=== PATIENT | female | born 1985 | race Caucasian/White ===

== ENCOUNTER → 2017-01-02 | Outpatient (CLI) | payer OTHER ==
[2017-01-02 13:43] LABS: BLOOD UREA NITROGEN 13 mg/dL (7-20); CREATININE RESULT 0.72 mg/dL (0.52-1.25)
== END ==
LOC: OD 12:03
PROVIDERS: ATTEND Nurse Practitioner Primary Care
DX: I10 Essential (primary) hypertension (principal)
CPT/HCPCS: 36415; 82565; 84520

== ENCOUNTER 2017-03-18 07:11 | Day surgery (SDC) | payer OTHER ==
[2017-03-13 10:53] LABS: HEMATOCRIT 40.3 % (36.0-47.0); HEMOGLOBIN 14.1 g/dL (12.0-15.5); MEAN CORPUSCULAR HEMOGLOBIN 30.6 pg (27.0-33.4); MEAN CORPUSCULAR VOLUME 87 fl (80-97); RED BLOOD COUNT 4.62 10^6/uL (3.72-5.28); RED CELL DISTRIBUTION WIDTH 13.6 % (11.5-14.0); WHITE BLOOD COUNT 7.6 10^3/uL (4.0-10.5)
[2017-03-13 10:55] LABS: APPEARANCE,URINE SLIGHTLY-CLOUDY; BILIRUBIN,URINE NEGATIVE (NEGATIVE); GLUCOSE, URINE NEGATIVE (NEGATIVE); KETONES,URINE NEGATIVE (NEGATIVE); LEUKOCYTE ESTERASE,URINE NEGATIVE (NEGATIVE); NITRITE,URINE NEGATIVE (NEGATIVE); PROTEIN,URINE NEGATIVE (NEGATIVE); UROBILINOGEN,URINE NEGATIVE mg/dL (<2.0)
[2017-03-13 11:29] LABS: ALANINE AMINOTRANSFERASE 38 U/L (9-52); ALBUMIN 5.2 g/dL (3.5-5.0); ALKALINE PHOSPHATASE 67 U/L (38-126); ANION GAP 16 (5-19); ASPARTATE AMINO TRANSFERASE 19 U/L (14-36); BILIRUBIN,DIRECT 0.4 mg/dL (0.0-0.4); BILIRUBIN,TOTAL 0.6 mg/dL (0.2-1.3); BLOOD UREA NITROGEN 11 mg/dL (7-20); CALCIUM 10.1 mg/dL (8.4-10.2); CARBON DIOXIDE 27 mmol/L (22-30); CHLORIDE 100 mmol/L (98-107); CREATININE RESULT 0.83 mg/dL (0.52-1.25); GLUCOSE 83 mg/dL (75-110); POTASSIUM 4.6 mmol/L (3.6-5.0); SODIUM 142.6 mmol/L (137-145); TOTAL PROTEIN 8.7 g/dL (6.3-8.2)
[~2017-03-18 07:11] MED LIST: BUPIVACAINE HCL 0.25 % INJ/PF (2.5 MG/1 ML) 30 ML VIAL ONE; CEFAZOLIN 1 GM/D5W RTU 1 GM/50 ML RTUPB IV PRN; LACTATED RINGERS 1000 ML IV PRN
[2017-03-18] MEDS ORDERED: SCOPOLAMINE HYDROBROMIDE 1.5 MG PATCH.TD72 ONE (08:02)
[2017-03-18] MEDS ORDERED: MIDAZOLAM 2 MG/2 ML INJ ONE (08:37)
[2017-03-18] MEDS ORDERED: FENTANYL CITRATE INJ/PF 100 MCG/2 ML AMPUL ONE (08:37)
[2017-03-18] MEDS ORDERED: DEXAMETHASONE SOD PHOSPHATE INJ 4 MG/1 ML VIAL ONE (08:37)
[2017-03-18] MEDS ORDERED: ONDANSETRON HCL INJ/PF 4 MG/2 ML SDV ONE ×2 (08:37→10:31)
[2017-03-18] MEDS ORDERED: ACETAMINOPHEN 100 ML IV ONE (08:38)
[2017-03-18] MEDS ORDERED: PROPOFOL INJ 200 MG/20 ML VIAL IV ONE (08:38)
[2017-03-18] MEDS ORDERED: MEPERIDINE HCL/PF INJ 25 MG/1 ML DISP.SYRIN IV PRN (09:23)
[2017-03-18] MEDS ORDERED: FENTANYL CITRATE INJ/PF 100 MCG/2 ML AMPUL IV PRN ×3 (09:23)
[2017-03-18] MEDS ORDERED: OXYCODONE-ACETAMINOPHEN 5-325 MG TABLET PO PRN ×4 (09:23→10:34)
[2017-03-18] MEDS ORDERED: PROMETHAZINE HCL INJ 25 MG/1 ML VIAL IV PRN ×3 (09:23→10:34)
[2017-03-18] MEDS ORDERED: DIPHENHYDRAMINE HCL 50 MG/ML VIAL IV PRN (09:23)
[2017-03-18] MEDS ORDERED: MORPHINE SULFATE 10 MG/ML INJ IV PRN (09:23)
[2017-03-18] MEDS ORDERED: KETOROLAC TROMETHAMINE INJ/PF 30 MG/1 ML SDV ONE (09:55)
[2017-03-18] MEDS ORDERED: OXYCODONE-ACETAMINOPHEN 5-325 MG TABLET ONE (10:04)
--- NOTE | 2017-03-18 10:58 | OPERATIVE REPORT E ---
Operative Report NAME: JAGDISH MEDRANO : 1985 AGE: 32Y DATE OF SURGERY: 03/18/2017 ROOM: PREOPERATIVE DIAGNOSIS: LEFT LOWER QUADRANT PAIN, STATUS TOTAL ABDOMINAL HYSTERECTOMY, RIGHT SALPINGO-OOPHORECTOMY. POSTOPERATIVE DIAGNOSIS NORMAL LEFT TUBE AND OVARY STATUS POST TOTAL ABDOMINAL HYSTERECTOMY, RIGHT SALPINGO-OOPHORECTOMY. OPERATION: Diagnostic laparoscopy. SURGEON: JUNO LOFTON M.D. ANESTHESIA: General. PERTINENT HISTORY AND OPERATIVE FINDINGS: This is a 32-year-old female who has been having increasing problems with left lower quadrant pain. Ultimately decided that she wanted us to take a look because of pain and discomfort. On examination today, as stated the pelvis was noted to have the previous hysterectomy, right salpingo-oophorectomy; otherwise negative. The liver appeared to be normal. The gallbladder appeared to be grossly normal. There did not appear to be any scar tissue. Was unable to localize the appendix. OPERATIVE PROCEDURE: The patient was brought into the OR, placed on the table in a supine position, and inducted under general anesthesia. Following this, she was prepped and draped in a sterile fashion. A catheter was inserted. Bladder was drained with a Loaiza. The Veress needle was introduced umbilically and carried through the various layers until the abdominal cavity was entered. Upon entering the abdominal cavity, approximately 3.1 L of CO2 were injected. Opening pressure was 5. Closing was 15 cm. Having removed the Veress needle, a small incision was made infraumbilically. Through this incision, a trocar and sleeve were inserted. The trocar is removed and through the sleeve, a laparoscope was inserted. A second incision was made. Suprapubically through this incision, a trocar and sleeve was inserted. The trocar is removed and through the sleeve, probe was inserted. The contents of the pelvis were then recorded as was the abdomen and the liver and gallbladder. This terminated procedure. The lower sleeve was removed. The CO2 was allowed to escape. The upper sleeve was removed. The patient had 4 mL of 0.25% Marcaine injected in the subumbilical and the suprapubic incisions. The fascia was closed with an interrupted 0 Vicryl. The skin is brought together with a subcuticular 4-0 Prolene in the umbilical area and interrupted 4-0 Prolene in the suprapubic. The Loaiza catheter was removed. Anesthesia was discontinued. Patient was transferred to recovery room in satisfactory condition. Negligible blood loss. DICTATING PHYSICIAN: JUNO LOFTON M.D. [id number] PHY#: [id number] ID: [id number] JOB#: [id number] ACCT: [id number] cc:JUNO LOFTON M.D. >
[2017-03-18 12:00] VITALS: BP 109/79
[2017-03-18] MEDS ORDERED: SUCCINYLCHOLINE CHLORIDE INJ 200 MG/10 ML VIAL ONE (13:26)
== END 2017-03-18 12:05 | disposition home or self-care (01) ==
LOC: OROUT 07:11
PROVIDERS: ATTEND Obstetrics & Gynecology
PROC: 0WJJ4ZZ Inspection of Pelvic Cavity, Percutaneous Endoscopic Approach (ICD-10-PCS; principal; 2017-03-18 09:00)
DX: N83.202 Unspecified ovarian cyst, left side (principal); R10.2 Pelvic and perineal pain; E03.9 Hypothyroidism, unspecified; Z90.710 Acquired absence of both cervix and uterus; Z88.8 Allergy status to other drugs, medicaments and biological substances
CPT/HCPCS: 36415; 85027; 80053; 81001; 49320; J2250; J0690; J1100; J3010; J1885; J0330; J2405; J2704; J0131; 790

== ENCOUNTER → 2017-03-21 | Outpatient (CLI) | payer OTHER ==
[~2017-03-21] MED LIST changes: -BUPIVACAINE HCL 0.25 % INJ/PF (2.5 MG/1 ML) 30 ML VIAL ONE; -CEFAZOLIN 1 GM/D5W RTU 1 GM/50 ML RTUPB IV PRN; +FENTANYL CITRATE INJ/PF 100 MCG/2 ML AMPUL ONE; +HYDROMORPHONE HCL INJ/PF 2 MG/ML AMPULE ONE; -LACTATED RINGERS 1000 ML IV PRN; +MIDAZOLAM 2 MG/2 ML INJ ONE; +PROPOFOL INJ 200 MG/20 ML VIAL IV ONE
--- NOTE | 2017-03-21 17:55 | RADIOLOGY REPORT (SQ) ---
EXAM DESCRIPTION: U/S ABDOMEN LIMITED W/O DOP COMPLETED DATE/TIME: 03/21/2017 5:46 pm REASON FOR STUDY: Right upper quadrant pain, cholecystitis R10.11 RIGHT UPPER QUADRANT PAIN K81.9 CHOLECYSTITIS, UNSPECIFIED COMPARISON: None. TECHNIQUE: Dynamic and static grayscale images acquired of the abdomen and recorded on PACS. Additio nal selected color Doppler and spectral images recorded. LIMITATIONS: None. FINDINGS: PANCREAS: No masses. Visualized pancreatic duct normal caliber. LIVER: 14 cm. Normal echotexture. No masses. LIVER VASCULATURE: Normal directional flow of the main portal vein and hepatic veins. GALLBLADDER: No stones. Normal wall thickness. No pericholecystic fluid. ULTRASOUND-DETECTED CHIN'S SIGN: Negative. INTRAHEPATIC DUCTS AND COMMON DUCT: CBD and intrahepatic ducts normal caliber. No filling defects. INFERIOR VENA CAVA: Normal flow. AORTA: No aneurysm. RIGHT KIDNEY: Normal size, 11.4 cm. Normal echogenicity. No solid or suspicious masses. No hydroneph rosis. No calcifications. PERITONEAL AND RIGHT PLEURAL SPACE: No ascites or effusions. OTHER: No other significant findings. IMPRESSION: NORMAL RIGHT UPPER QUADRANT ULTRASOUND. TECHNICAL DOCUMENTATION: JOB ID: [id number] [employer] All Rights Reserved
== END ==
LOC: RAD 16:45
PROVIDERS: ATTEND Nurse Practitioner Primary Care
DX: K81.9 Cholecystitis, unspecified (principal); R10.11 Right upper quadrant pain
CPT/HCPCS: 76705

== ENCOUNTER 2017-03-22 09:53 | Observation (INO) | payer OTHER ==
[~2017-03-22 09:53] MED LIST changes: +DEXAMETHASONE SOD PHOSPHATE INJ 4 MG/1 ML VIAL ONE; -FENTANYL CITRATE INJ/PF 100 MCG/2 ML AMPUL ONE; +GLYCOPYRROLATE INJ 0.4 MG/2 ML VIAL ONE; -HYDROMORPHONE HCL INJ/PF 2 MG/ML AMPULE ONE; +LIDOCAINE 2% INJ-PF (20 MG/ML) 2 ML AMPUL ONE; -MIDAZOLAM 2 MG/2 ML INJ ONE; +NEOSTIGMINE METHYLSULFATE 10 MG/10 ML VIAL ONE; +ONDANSETRON HCL INJ/PF 4 MG/2 ML SDV ONE; -PROPOFOL INJ 200 MG/20 ML VIAL IV ONE; +SUCCINYLCHOLINE CHLORIDE INJ 200 MG/10 ML VIAL ONE; +VECURONIUM BROMIDE INJ 10 MG VIAL IV ONE
[2017-03-22] MEDS ORDERED: MORPHINE SULFATE 10 MG/ML INJ IV ONE (10:07)
[2017-03-22] MEDS ORDERED: ONDANSETRON HCL INJ/PF 4 MG/2 ML SDV IV ONE (10:07)
[2017-03-22] MEDS ORDERED: NORMAL SALINE 1000 ML 1,000 ML IV ONE (10:10)
--- NOTE | 2017-03-22 10:10 | ER Document Report ---
ED Medical Screen (RME) - General Chief Complaint: Abdominal Pain Stated Complaint: ABDOMINAL PAIN Time Seen by Provider: 03/22/17 10:01 Notes: 32-year-old female past medical history chronic abdominal pain ongoing for the past few months here with complaints of right-sided abdominal pain ongoing for the past 3 days. She has also had nausea but no vomiting or diarrhea. She has worsening of the right upper quadrant abdominal pain with deep breathing but she has not had any chest pain shortness of breath or cough and has no prior history of PE. She was sent by Dr. Castro for an ultrasound yesterday (report is available through [facility]) which initially was read as normal however there was an addendum added that stated she did indeed have gallstones and a positive Ledesma sign. She also had a CT scan performed that has been faxed over this morning to this emergency department. EXAM Mild right upper quadrant tenderness to palpation Moderate epigastric tenderness to palpation No peritoneal signs TRAVEL OUTSIDE OF THE [place] IN LAST 30 DAYS: No - Related Data Allergies/Adverse Reactions: latex [Latex] Allergy (Intermediate, Verified 03/22/17 09:54) Itching & Redness diazepam [From Valium] Adverse Reaction (Verified 03/22/17 09:54) VOMITING Past Medical History - Social History Chew tobacco use (# tins/day): No Frequency of alcohol use: None Drug Abuse: None - Past Medical History Cardiac Medical History: Denies: Hx Coronary Artery Disease, Hx Heart Attack, Hx Hypertension Pulmonary Medical History: Denies: Hx Asthma, Hx Bronchitis, Hx COPD, Hx Pneumonia Neurological Medical History: Denies: Hx Cerebrovascular Accident, Hx Seizures Renal/ Medical History: Denies: Hx Peritoneal Dialysis Musculoskeltal Medical History: Denies Hx Arthritis Past Surgical History: Reports: Hx Gynecologic Surgery - NOVASURE. Denies: Hx Pacemaker - Immunizations Hx Diphtheria, Pertussis, Tetanus Vaccination: No History of Influenza Vaccine for 01/2017 - 06/2017 Season: Yes Influenza Administration Date for 01/2017 - 06/2017 Season: 12/17/16 Physical Exam - Vital signs Vitals: Temp Pulse Resp BP Pulse Ox 99.1 F 101 H 16 133/97 H 98 03/22/17 10:01 03/22/17 10:01 03/22/17 10:01 03/22/17 10:01 03/22/17 10:01 Course - Vital Signs Vital signs: Temp Pulse Resp BP Pulse Ox 99.1 F 101 H 16 133/97 H 98 03/22/17 10:01 03/22/17 10:01 03/22/17 10:01 03/22/17 10:01 03/22/17 10:01
[2017-03-22 10:33] LABS: APPEARANCE,URINE CLEAR; BILIRUBIN,URINE NEGATIVE (NEGATIVE); GLUCOSE, URINE NEGATIVE (NEGATIVE); KETONES,URINE NEGATIVE (NEGATIVE); LEUKOCYTE ESTERASE,URINE NEGATIVE (NEGATIVE); NITRITE,URINE NEGATIVE (NEGATIVE); PROTEIN,URINE NEGATIVE (NEGATIVE); URINE SPECIFIC GRAVITY 1.018; UROBILINOGEN,URINE NEGATIVE mg/dL (<2.0)
[2017-03-22 10:38] LABS: ABSOLUTE BASOPHILS # (AUTO) 0.1 10^3/uL (0.0-0.2); ABSOLUTE EOSINOPHILS # (AUTO) 0.2 10^3/uL (0.0-0.6); ABSOLUTE LYMPHOCYTES (AUTO) 2.4 10^3/uL (0.5-4.7); ABSOLUTE MONOCYTES (AUTO) 0.5 10^3/uL (0.1-1.4); ABSOLUTE NEUT (AUTO) 6.5 10^3/uL (1.7-8.2); BASOPHILS % (AUTO) 0.5 % (0-2); EOSINOPHILS % (AUTO) 1.6 % (0-6); HEMOGLOBIN 14.8 g/dL (12.0-15.5); HGB HCT DIFFERENCE 1.4; LYMPHOCYTES % (AUTO) 24.6 % (13-45); MEAN CORPUSCULAR HEMOGLOBIN 29.9 pg (27.0-33.4); MEAN CORPUSCULAR HGB CONC 34.5 g/dL (32.0-36.0); MEAN CORPUSCULAR VOLUME 87 fl (80-97); MONOCYTES % (AUTO) 5.4 % (3-13); RED BLOOD COUNT 4.97 10^6/uL (3.72-5.28); RED CELL DISTRIBUTION WIDTH 13.2 % (11.5-14.0); SEGMENTED NEUTROPHILS % (AUTO) 67.9 % (42-78); WHITE BLOOD COUNT 9.6 10^3/uL (4.0-10.5)
--- NOTE | 2017-03-22 10:58 | ER Document Report ---
ED GI/ - General Chief Complaint: Abdominal Pain Stated Complaint: ABDOMINAL PAIN Time Seen by Provider: 03/22/17 10:01 TRAVEL OUTSIDE OF THE [place] IN LAST 30 DAYS: No - HPI Notes: 03/22/17 10:55 32 years old female presents today with right upper quadrant pain and had a ultrasound yesterday was diagnosed with gallstone. Primary care physician called the surgical list and made arrangements to have a surgery done today. She also had a temperature. No nausea vomiting. No other constitutional symptoms. - Related Data Allergies/Adverse Reactions: latex [Latex] Allergy (Intermediate, Verified 03/22/17 09:54) Itching & Redness diazepam [From Valium] Adverse Reaction (Verified 03/22/17 09:54) VOMITING Past Medical History - General Information source: Patient - Social History Smoking Status: Never Smoker Chew tobacco use (# tins/day): No Frequency of alcohol use: None Drug Abuse: None Family History: Reviewed & Not Pertinent Patient has suicidal ideation: No Patient has homicidal ideation: No - Past Medical History Cardiac Medical History: Reports: Hx Hypertension Denies: Hx Coronary Artery Disease, Hx Heart Attack Pulmonary Medical History: Denies: Hx Asthma, Hx Bronchitis, Hx COPD, Hx Pneumonia Neurological Medical History: Denies: Hx Cerebrovascular Accident, Hx Seizures Renal/ Medical History: Denies: Hx Peritoneal Dialysis Musculoskeltal Medical History: Denies Hx Arthritis Past Surgical History: Reports: Hx Gynecologic Surgery - NOVASURE. Denies: Hx Pacemaker - Immunizations Hx Diphtheria, Pertussis, Tetanus Vaccination: No Review of Systems - Review of Systems Notes: REVIEW OF SYSTEMS: CONSTITUTIONAL : Denies fever, chills, or sweats. Denies recent illness. EENT: Denies eye, ear, throat, or mouth pain or symptoms. Denies nasal or sinus congestion or discharge. Denies throat, tongue, or mouth swelling or difficulty swallowing. CARDIOVASCULAR: Denies chest pain. Denies palpitations or racing or irregular heart beat. Denies ankle edema. RESPIRATORY: Denies cough, cold, or chest congestion. Denies shortness of breath, difficulty breathing, or wheezing. GASTROINTESTINAL: Denies abdominal pain or distention. Denies nausea, vomiting , or diarrhea. Denies blood in vomitus, stools, or per rectum. Denies black, tarry stools. Denies constipation. GENITOURINARY: Denies difficulty urinating, painful urination, burning, frequency, blood in urine, or discharge. FEMALE GENITOURINARY: Denies vaginal bleeding, heavy or abnormal periods, irregular periods. Denies vaginal discharge or odor. MUSCULOSKELETAL: Denies back or neck pain or stiffness. Denies joint pain or swelling. SKIN: Denies rash, lesions or sores. HEMATOLOGIC : Denies easy bruising or bleeding. LYMPHATIC: Denies swollen, enlarged glands. NEUROLOGICAL: Denies confusion or altered mental status. Denies passing out or loss of consciousness. Denies dizziness or lightheadedness. Denies headache. Denies weakness or paralysis or loss of use of either side. Denies problems with gait or speech. Denies sensory loss, numbness, or tingling. Denies seizures. PSYCHIATRIC: Denies anxiety or stress. Denies depression, suicidal ideation, or homicidal ideation. ALL OTHER SYSTEMS REVIEWED AND NEGATIVE. PHYSICAL EXAMINATION: GENERAL: Well-appearing, well-nourished and in no acute distress. HEAD: Atraumatic, normocephalic. EYES: Pupils equal round and reactive to light, extraocular movements intact, conjunctiva are normal. ENT: Nares patent, oropharynx clear without exudates. Moist mucous membranes. NECK: Normal range of motion, supple without lymphadenopathy LUNGS: Breath sounds clear to auscultation bilaterally and equal. No wheezes rales or rhonchi. HEART: Regular rate and rhythm without murmurs ABDOMEN: Soft, tender over the right upper quadrant no rebound tenderness or guarding, nondistended abdomen. No guarding, no rebound. No masses appreciated. Female : deferred Musculoskeletal: Normal range of motion, no pitting or edema. No cyanosis. NEUROLOGICAL: Cranial nerves grossly intact. Normal speech, normal gait. Normal sensory, motor exams PSYCH: Normal mood, normal affect. SKIN: Warm, Dry, normal turgor, no rashes or lesions noted. Dictation was performed using [employer] voice recognition software Physical Exam - Vital signs Vitals: Temp Pulse Resp BP Pulse Ox 99.1 F 101 H 16 133/97 H 98 03/22/17 10:01 03/22/17 10:01 03/22/17 10:01 03/22/17 10:01 03/22/17 10:01 Course - Re-evaluation Re-evalutation: 03/22/17 10:56 Her case was discussed with surgical list hvac refrigeration technician and currently being admitted to his service. - Vital Signs Vital signs: Temp Pulse Resp BP Pulse Ox 99.1 F 101 H 16 133/97 H 98 03/22/17 10:01 03/22/17 10:01 03/22/17 10:01 03/22/17 10:01 03/22/17 10:01 - Laboratory Result Diagrams: 03/22/17 10:18 03/22/17 10:18 Laboratory results interpreted by me: 03/22/17 10:18 AST 37 H Total Protein 9.1 H Albumin 5.1 H Discharge - Discharge Clinical Impression: Acute cholecystitis Gallstone Qualifiers: Cholecystitis presence: with cholecystitis Cholecystitis acuity: acute Disposition: ADMITTED INPATIENT Admitting Provider: Surgicalist Unit Admitted: Surgical Floor
[2017-03-22 11:00] LABS: ALANINE AMINOTRANSFERASE 43 U/L (9-52); ALBUMIN 5.1 g/dL (3.5-5.0); ALKALINE PHOSPHATASE 63 U/L (38-126); ANION GAP 17 (5-19); ASPARTATE AMINO TRANSFERASE 37 U/L (14-36); BILIRUBIN,DIRECT 0.4 mg/dL (0.0-0.4); BILIRUBIN,TOTAL 0.7 mg/dL (0.2-1.3); BLOOD UREA NITROGEN 12 mg/dL (7-20); CALCIUM 9.7 mg/dL (8.4-10.2); CARBON DIOXIDE 23 mmol/L (22-30); CHLORIDE 102 mmol/L (98-107); CREATININE RESULT 0.87 mg/dL (0.52-1.25); GLUCOSE 86 mg/dL (75-110); POTASSIUM 4.6 mmol/L (3.6-5.0); SODIUM 142.4 mmol/L (137-145); TOTAL PROTEIN 9.1 g/dL (6.3-8.2)
--- NOTE | 2017-03-22 11:54 | PDOC H&P ---
History of Present Illness Admission Date/PCP: JUNO LOFTON MD Patient complains of: Abdominal pains with nausea History of Present Illness: JAGDISH MEDRANO is a 32 year old female Complaining of abdominal pains and nausea for the past 3-4 days. She had a diagnostic laparoscopy 4 days ago which was essentially unremarkable. She had ultrasound of the gallbladder which showed gallstones with positive Ledesma sign. CAT scan also showed gallstones. I was called in this morning by Dr. Lofton for possible laparoscopic cholecystectomy Past Medical History Cardiac Medical History: Reports: Hypertension Denies: Coronary Artery Disease, Myocardial Infarction Pulmonary Medical History: Denies: Asthma, Bronchitis, Chronic Obstructive Pulmonary Disease (COPD), Pneumonia Neurological Medical History: Denies: Seizures Musculoskeltal Medical History: Denies: Arthritis Hematology: Denies: Anemia Past Surgical History Past Surgical History: Reports: Other - Diagnostic laparoscopy done by a ACTIVITIES MANAGER 4 days ago which was apparently unr Denies: Pacemaker Social History Smoking Status: Never Smoker Family History Family History: Reviewed & Not Pertinent Parental Family History Reviewed: Yes - Mother has psoriatic arthritis Children Family History Reviewed: No Sibling(s) Family History Reviewed.: No Medication/Allergy Home Medications: Alprazolam [Xanax] 0.5 mg PO DAILY PRN 03/13/17 Lisinopril 5 mg PO QHS 03/13/17 Allergies/Adverse Reactions: latex [Latex] Allergy (Intermediate, Verified 03/22/17 09:54) Itching & Redness diazepam [From Valium] Adverse Reaction (Verified 03/22/17 09:54) VOMITING Review of Systems Constitutional: PRESENT: other - No fever no chills Eyes: PRESENT: other - No obvious swelling or hearing problems Nose, Mouth, and Throat: PRESENT: other Cardiovascular: PRESENT: other - No chest pains no shortness of breath Gastrointestinal: PRESENT: as per HPI, abdominal pain, nausea, vomiting Musculoskeletal: PRESENT: other - No back pains Integumentary: PRESENT: other - No skin rash Neurological: PRESENT: other - No seizures Psychiatric: PRESENT: other - No hallucinations Endocrine: PRESENT: other - No polydipsia no polyuria Hematologic/Lymphatic: PRESENT: other - No easy bruisability or lymphadenopathy Physical Exam Vital Signs: Temp Pulse Resp BP Pulse Ox 99.1 F 101 H 16 133/97 H 98 03/22/17 10:01 03/22/17 10:01 03/22/17 10:01 03/22/17 10:01 03/22/17 10:01 Intake & Output 03/21/17 03/22/17 03/23/17 06:59 06:59 06:59 Weight 78.7 kg General appearance: PRESENT: no acute distress Head exam: PRESENT: atraumatic, normocephalic Eye exam: PRESENT: conjunctiva pink Ear exam: PRESENT: normal external ear exam Mouth exam: PRESENT: moist, tongue midline Throat exam: PRESENT: other - No tonsillar erythema Respiratory exam: PRESENT: clear to auscultation tejas Cardiovascular exam: PRESENT: RRR Pulses: PRESENT: normal radial pulses Vascular exam: PRESENT: normal capillary refill GI/Abdominal exam: PRESENT: soft, tenderness - Tenderness epigastric and right upper quadrant areas Extremities exam: PRESENT: full ROM Musculoskeletal exam: PRESENT: ambulatory Neurological exam: PRESENT: alert, oriented to person, oriented to place, oriented to time, oriented to situation Psychiatric exam: PRESENT: appropriate affect Skin exam: PRESENT: normal color, warm Results Laboratory Results: 03/22/17 10:18 03/22/17 10:18 03/22/17 03/22/17 03/22/17 10:15 10:18 10:18 WBC 9.6 RBC 4.97 Hgb 14.8 Hct 43.0 MCV 87 MCH 29.9 MCHC 34.5 RDW 13.2 Plt Count 424 Seg Neutrophils % 67.9 Lymphocytes % 24.6 Monocytes % 5.4 Eosinophils % 1.6 Basophils % 0.5 Absolute Neutrophils 6.5 Absolute Lymphocytes 2.4 Absolute Monocytes 0.5 Absolute Eosinophils 0.2 Absolute Basophils 0.1 Sodium 142.4 Potassium 4.6 Chloride 102 Carbon Dioxide 23 Anion Gap 17 BUN 12 Creatinine 0.87 Est GFR ( Amer) > 60 Est GFR (Non-Af Amer) > 60 Glucose 86 Calcium 9.7 Total Bilirubin 0.7 AST 37 H ALT 43 Alkaline Phosphatase 63 Total Protein 9.1 H Albumin 5.1 H Lipase 43.0 Urine Color YELLOW Urine Appearance CLEAR Urine pH 7.0 Ur Specific Harrold 1.018 Urine Protein NEGATIVE Urine Glucose (UA) NEGATIVE Urine Ketones NEGATIVE Urine Blood NEGATIVE Urine Nitrite NEGATIVE Ur Leukocyte Esterase NEGATIVE Urine WBC (Auto) 2 Urine RBC (Auto) 1 Assessment & Plan - Time Time Spent: 30 to 50 Minutes - Plan Summary Plan Summary: For lap olimpia today
[2017-03-22] MEDS ORDERED: BUPIVACAINE HCL 0.25% /EPINEPHRINE INJ/PF 30 ML SDV ONE (12:10)
[2017-03-22] MEDS ORDERED: CEFAZOLIN 2 GM/D5W RTU 2 GM/50 ML RTUPB IV ONE (12:27)
[2017-03-22] MEDS ORDERED: FENTANYL CITRATE INJ/PF 100 MCG/2 ML AMPUL ONE (12:38)
[2017-03-22] MEDS ORDERED: PROPOFOL INJ 200 MG/20 ML VIAL IV ONE (12:39)
[2017-03-22] MEDS ORDERED: HYDROMORPHONE HCL INJ/PF 2 MG/ML AMPULE ONE (12:39)
[2017-03-22] MEDS ORDERED: MIDAZOLAM 2 MG/2 ML INJ ONE (12:39)
[2017-03-22] MEDS ORDERED: FENTANYL CITRATE INJ/PF 100 MCG/2 ML AMPUL IV PRN ×3 (13:38)
[2017-03-22] MEDS ORDERED: PROMETHAZINE HCL INJ 25 MG/1 ML VIAL IV PRN (13:38)
[2017-03-22] MEDS ORDERED: MORPHINE SULFATE 10 MG/ML INJ IV PRN ×2 (13:38→15:32)
[2017-03-22] MEDS ORDERED: DIPHENHYDRAMINE HCL 50 MG/ML VIAL IV PRN (13:38)
[2017-03-22] MEDS ORDERED: MEPERIDINE HCL/PF INJ 25 MG/1 ML DISP.SYRIN IV PRN (13:38)
[2017-03-22] MEDS: FENTANYL CITRATE INJ/PF 100 MCG/2 ML AMPUL ONE ×2 (14:45→14:55)
[2017-03-22] MEDS ORDERED: KETOROLAC TROMETHAMINE INJ/PF 30 MG/1 ML SDV ONE (15:06)
[2017-03-22] MEDS: HYDROMORPHONE HCL INJ/PF 2 MG/ML AMPULE ONE ×2 (15:15→15:25)
--- NOTE | 2017-03-22 15:18 | OPERATIVE REPORT E ---
Operative Report NAME: JAGDISH MEDRANO : 1985 AGE: 32Y DATE OF SURGERY: 03/22/2017 ROOM: ED05 PREOPERATIVE DIAGNOSIS: [id number] calculus cholecystitis. POSTOPERATIVE DIAGNOSIS: [id number] calculus cholecystitis. PROCEDURE: Laparoscopic cholecystectomy. SURGEON: LISA GARCIA M.D. ANESTHESIA: General. INDICATIONS: This is a 32-year-old female with complaints of right upper quadrant epigastric pains for the past 3-4 days associated with nausea and vomiting. DESCRIPTION OF PROCEDURE: After adequate general anesthesia, the patient was placed in supine position and the abdomen prepped and draped in the usual sterile fashion. The incision from the infraumbilical area was then enlarged and fascia grasped with 2 Uriah clamps and Kaitlin trocar inserted. CO2 insufflated through the Kaitlin trocar to a pressure of 15 mmHg. Next, 3 other trocars were placed under direct visit, a 12 mm in the subxiphoid and two 5 mm in the right upper quadrant. The gallbladder was then identified and noted to be slightly thickened wall with adhesions. The gallbladder was grasped and pulled over the liver and blunt dissection of the adhesions performed. Further dissection of the adhesions with the use of Harmonic nakul was done. The infundibulum was subsequently grasped and the cystic duct and artery identified and dissected. Hemoclips were placed in both cystic duct and artery, placing 3 clips proximally and 1 distally. It was then divided between the distal and most proximal clips. The gallbladder was then taken off the liver bed with the use of Harmonic nakul. The gallbladder was then removed and placed in an Endobag and pulled out through the umbilical port. There was at least 1 stone palpated. There is a little extravasation of bile in the abdominal cavity and this was then further irrigated with saline solution. Adequate hemostasis was noted at the operative site. No other gross abnormality noted on inspection of the abdominal cavity. All of the trocars were then removed and CO2 allowed to come out through the trocar sites. In the infraumbilical fascial defect closed with [id number] suture using 1-Vicryl and all the skin incisions closed with running subcuticular 4-0 Vicryl undyed. Dermabond dressing was used. The patient tolerated the procedure well. Needle, instrument, and sponge counts were all correct. The estimated blood loss was about 10 mL. The patient was then brought to the PACU in satisfactory condition. DICTATING PHYSICIAN: LISA GARCIA M.D. [id number] PHY#: [id number] ID: [id number] JOB#: [id number] ACCT: [id number] cc:LISA GARCIA M.D. >
[2017-03-22] MEDS ORDERED: OXYCODONE-ACETAMINOPHEN 5-325 MG TABLET PO PRN (15:32)
[2017-03-22] MEDS ORDERED: NORMAL SALINE 1000 ML 1,000 ML IV PRN (15:33)
[2017-03-22] MEDS ORDERED: ONDANSETRON HCL INJ/PF 4 MG/2 ML SDV ONE (15:56)
[2017-03-22] MEDS: MORPHINE SULFATE 10 MG/ML INJ IV PRN ×2 (17:49→21:55)
[2017-03-22] MEDS: ONDANSETRON HCL INJ/PF 4 MG/2 ML SDV IV PRN (17:49)
[2017-03-22] MEDS ORDERED: PROMETHAZINE HCL INJ 25 MG/1 ML VIAL ONE (19:55)
[2017-03-22] MEDS: NORMAL SALINE 1000 ML 1,000 ML IV PRN (20:08)
[2017-03-22] MEDS: PROMETHAZINE HCL INJ 25 MG/1 ML VIAL IV PRN (20:09)
--- NOTE | 2017-03-22 21:45 | EKG REPORT ---
SEVERITY:- NORMAL ECG - SINUS RHYTHM : Confirmed by: Osito Tilley 22-Mar-2017 21:45:19
[2017-03-22] MEDS: CEFAZOLIN 1 GM/D5W RTU 1 GM/50 ML RTUPB IV SCH (21:55)
[2017-03-22] MEDS ORDERED: CEFAZOLIN 1 GM/D5W RTU 1 GM/50 ML RTUPB IV SCH (22:00)
[2017-03-23] MEDS: OXYCODONE-ACETAMINOPHEN 5-325 MG TABLET PO PRN ×3 (01:12→16:56)
[2017-03-23] MEDS: ONDANSETRON HCL INJ/PF 4 MG/2 ML SDV IV PRN ×2 (01:12→22:26)
[2017-03-23] MEDS: CEFAZOLIN 1 GM/D5W RTU 1 GM/50 ML RTUPB IV SCH (06:25)
[2017-03-23] MEDS: MORPHINE SULFATE 10 MG/ML INJ IV PRN ×5 (06:26→22:25)
[2017-03-23] MEDS: NORMAL SALINE 1000 ML 1,000 ML IV PRN ×2 (06:26→18:27)
[2017-03-23] MEDS: PROMETHAZINE HCL INJ 25 MG/1 ML VIAL IV PRN ×3 (06:26→18:20)
--- NOTE | 2017-03-23 19:29 | PDOC PROGRESS REPORT ---
Subjective Progress Note for:: 03/23/17 Subjective:: Post op pains requiring parenteral pain meds Reason For Visit: ACUTE CHOLECYSTITIS,CALCULUS OF GALLBLADDER Physical Exam Vital Signs: Temp Pulse Resp BP Pulse Ox 98.3 F 85 16 132/83 H 95 03/23/17 16:18 03/23/17 16:18 03/23/17 16:18 03/23/17 16:18 03/23/17 16:18 Intake & Output 03/22/17 03/23/17 03/24/17 06:59 06:59 06:59 Intake Total 3820 1937 Output Total 725 750 Balance 3095 1187 Exam: Abdomen is soft. Mild tenderness RUQ Assessment & Plan - Time Time Spent with patient: 15-24 minutes - Inpatient Certification Medical Necessity: Need for Pain Control - Plan Summary Plan Summary: Possible discharge tomorrow.
[2017-03-24] MEDS: NORMAL SALINE 1000 ML 1,000 ML IV PRN (02:55)
[2017-03-24] MEDS: MORPHINE SULFATE 10 MG/ML INJ IV PRN ×3 (02:56→10:55)
[2017-03-24] MEDS: PROMETHAZINE HCL INJ 25 MG/1 ML VIAL IV PRN (02:56)
[2017-03-24] MEDS: ONDANSETRON HCL INJ/PF 4 MG/2 ML SDV IV PRN (07:10)
[2017-03-24] MEDS: OXYCODONE-ACETAMINOPHEN 5-325 MG TABLET PO PRN (13:54)
[2017-03-24 14:10] VITALS: BP 126/83
--- NOTE | 2017-03-25 09:48 | DISCHARGE SUMMARY E ---
Discharge Summary NAME: JAGDISH MEDRANO : 1985 AGE: 32Y ADMITTED: 03/22/2017 DISCHARGED: 03/24/2017 FINAL DIAGNOSES: 1. Acute cholecystitis. 2. Cholelithiasis. PROCEDURE: Laparoscopic cholecystectomy 03/22/2017. HOSPITAL COURSE: This is a 32-year-old female, who complained of right upper quadrant pain for the past few days. She had an ultrasound of the gallbladder in the emergency room, which showed gallstones. Her liver function tests were normal. She then underwent laparoscopic cholecystectomy on 03/22/2017. Postoperatively, the patient did require parenteral pain medication until the day of discharge on 03/24/2017. Prescription for Percocet was given to be followed up in the Surgical Clinic in about 2 weeks. Patient advised not do any lifting, more than 15 pounds until seen in the clinic. She can have a regular diet. DICTATING PHYSICIAN: LISA GARCIA M.D. [id number] PHY#: [id number] ID: [id number] JOB#: [id number] ACCT: [id number] cc:LISA GARCIA M.D. [facility],
== END 2017-03-24 15:25 | disposition home or self-care (01) ==
LOC: ER 09:53 → EH 12:32 → INTOOBSV 12:32 → 4S 16:56
PROVIDERS: ATTEND Surgery
PROC: 0FT44ZZ Resection of Gallbladder, Percutaneous Endoscopic Approach (ICD-10-PCS; principal; 2017-03-22 13:30)
DX: K80.10 Calculus of gallbladder with chronic cholecystitis without obstruction (principal); I10 Essential (primary) hypertension; Z79.899 Other long term (current) drug therapy; G89.18 Other acute postprocedural pain; Z98.890 Other specified postprocedural states
CPT/HCPCS: 99285; 96361; 96374; 96375; 36415; 83690; 85025; 81025; 80053; 81001; 88304 ×2; 93005; 93010; 47562; J2250; J3490 ×3; J0690 ×3; J1100; J3010; J1885; J2270 ×3; J1170; J2550 ×3; J0330; J2405 ×3; J7030 ×3; J2704; 790; L3908

== ENCOUNTER → 2017-08-31 | Outpatient (CLI) | payer OTHER ==
--- NOTE | 2017-08-31 11:36 | RADIOLOGY REPORT (SQ) ---
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 TECHNIQUE: Multiplanar imaging includes noncontrasted T1, T2, FLAIR, diffusion with ADC map and post gadolinium contrast T1 sequences. Images stored on PACS. CONTRAST TYPE AND DOSE: 15 mL Multihance. RENAL FUNCTION: GFR > 60. LIMITATIONS: None. FINDINGS: ANATOMY: No anomalies. Normal vascular flow voids. Pituitary fossa normal. CSF SPACES: Normal in size and contour. No hemorrhage. CEREBRUM: Sulci and gyri normal in size and contour. Normal white matter signal on FLAIR imaging. No evidence of hemorrhage, mass, or extraaxial fluid collection. No abnormal enhancement post contrast. POSTERIOR FOSSA: No signal alteration. No hemorrhage. No edema, masses, or mass effect. Internal jesu tory canals, cerebellopontine angles, mastoids normal. No enhancing lesions. No abnormal enhancement post contrast. DIFFUSION IMAGING: Negative for acute or subacute infarction. ORBITS: No masses. Globes normal. PARANASAL SINUSES: No fluid levels. Mucosa normal. OTHER: No other significant finding. IMPRESSION: NORMAL MRI OF THE BRAIN WITHOUT AND WITH INTRAVENOUS GADOLINIUM CONTRAST. EVIDENCE OF ACUTE STROKE: NO. TECHNICAL DOCUMENTATION: JOB ID: [id number] [employer]- All Rights Reserved Reading location - IP/workstation name: [email or web address]
--- NOTE | 2017-08-31 11:43 | RADIOLOGY REPORT (SQ) ---
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 TECHNIQUE: Magnetic resonance venography imaging performed through the brain. Images reformatted us ing 3-D MIPS. Images were also correlated with MRI of the brain with contrast performed at the same time. LIMITATIONS: None. FINDINGS: The major dural venous sinuses are patent, including the superior sagittal sinus, transver se sinuses, and sigmoid sinuses. The left sigmoid sinus appears somewhat small compared to the right . IMPRESSION: NORMAL MRV OF THE BRAIN. TECHNICAL DOCUMENTATION: JOB ID: [id number] [employer]- All Rights Reserved Reading location - IP/workstation name: [email or web address]
== END ==
LOC: RAD 08-28 18:16
PROVIDERS: ATTEND Ophthalmology
DX: H47.11 Papilledema associated with increased intracranial pressure (principal); G44.009 Cluster headache syndrome, unspecified, not intractable
CPT/HCPCS: 82565; 70553; 70544; A9577

== ENCOUNTER 2019-08-31 08:45 | Day surgery (SDC) | payer MEDICAID, OTHER ==
[2019-08-26 12:05] LABS: HEMATOCRIT 39.4 % (36.0-47.0); HEMOGLOBIN 13.8 g/dL (12.0-15.5); MEAN CORPUSCULAR HEMOGLOBIN 31.3 pg (27.0-33.4); MEAN CORPUSCULAR VOLUME 89 fl (80-97); PLATELET COUNT 330 10^3/uL (150-450); RED BLOOD COUNT 4.41 10^6/uL (3.72-5.28); RED CELL DISTRIBUTION WIDTH 12.8 % (11.5-14.0); WHITE BLOOD COUNT 6.9 10^3/uL (4.0-10.5)
[2019-08-26 12:12] LABS: APPEARANCE,URINE CLEAR; BILIRUBIN,URINE NEGATIVE (NEGATIVE); COLOR,URINE COLORLESS; GLUCOSE, URINE NEGATIVE (NEGATIVE); KETONES,URINE NEGATIVE (NEGATIVE); LEUKOCYTE ESTERASE,URINE NEGATIVE (NEGATIVE); NITRITE,URINE NEGATIVE (NEGATIVE); PROTEIN,URINE NEGATIVE (NEGATIVE); URINE SPECIFIC GRAVITY 1.003; UROBILINOGEN,URINE NEGATIVE mg/dL (<2.0)
[~2019-08-31 08:45] MED LIST changes: +CEFAZOLIN 1 GM/D5W RTU 1 GM/50 ML RTUPB IV PRN; -DEXAMETHASONE SOD PHOSPHATE INJ 4 MG/1 ML VIAL ONE; -GLYCOPYRROLATE INJ 0.4 MG/2 ML VIAL ONE; +LACTATED RINGERS 1000 ML IV PRN; +LIDOCAINE 0.5% INJ-PF (5 MG/ML) 50 ML SDV SUBCUT PRN; -LIDOCAINE 2% INJ-PF (20 MG/ML) 2 ML AMPUL ONE; -NEOSTIGMINE METHYLSULFATE 10 MG/10 ML VIAL ONE; -ONDANSETRON HCL INJ/PF 4 MG/2 ML SDV ONE; -SUCCINYLCHOLINE CHLORIDE INJ 200 MG/10 ML VIAL ONE; -VECURONIUM BROMIDE INJ 10 MG VIAL IV ONE
[2019-08-31] MEDS ORDERED: PROPOFOL INJ 200 MG/20 ML VIAL IV ONE (09:32)
[2019-08-31] MEDS ORDERED: DEXAMETHASONE SOD PHOSPHATE INJ 4 MG/1 ML VIAL ONE (09:32)
[2019-08-31] MEDS ORDERED: FENTANYL CITRATE INJ/PF 100 MCG/2 ML AMPUL ONE (09:32)
[2019-08-31] MEDS ORDERED: MIDAZOLAM 2 MG/2 ML INJ ONE (09:32)
[2019-08-31] MEDS ORDERED: ONDANSETRON HCL INJ/PF 4 MG/2 ML SDV ONE (09:32)
[2019-08-31] MEDS ORDERED: CEFAZOLIN 1 GM/D5W RTU 1 GM/50 ML RTUPB IV ONE (09:41)
[2019-08-31] MEDS ORDERED: FENTANYL CITRATE INJ/PF 100 MCG/2 ML AMPUL IV PRN ×3 (10:04)
[2019-08-31] MEDS ORDERED: DIPHENHYDRAMINE HCL 50 MG/ML VIAL IV PRN (10:04)
[2019-08-31] MEDS ORDERED: MEPERIDINE HCL/PF INJ 25 MG/1 ML DISP.SYRIN IV PRN (10:04)
[2019-08-31] MEDS ORDERED: PROMETHAZINE HCL INJ 25 MG/1 ML VIAL IV PRN (10:04)
--- NOTE | 2019-08-31 10:26 | Operative Report ---
Operative Report DATE OF SURGERY: 08/31/19 PREOPERATIVE DIAGNOSIS: KIYA POSTOPERATIVE DIAGNOSIS: Same OPERATION: TVT using Prema sling, cystoscopy SURGEON: FREDERICK TERRAZAS ANESTHESIA: GA TISSUE REMOVED OR ALTERED: None COMPLICATIONS: None ESTIMATED BLOOD LOSS: Less than 10 cc PROCEDURE: She placed in a dorsal lithotomy position prepped and sterile fashion. Incision was made approximately 2 cm below the urethra and the mid urethral position. Underlying vesicovaginal tissue was bluntly sharply divided until the posterior aspect of the symphysis could be palpated. 2 puncture wounds were made above the symphysis 1 cm lateral to the midline. And the applicator needle stick were placed from the top down through the opening in the vaginal. This task was then performed with no foreign bodies being noted. Sling guides placed on the ends of the needles and pulled back through a pair of Booth scissors were kept under the urethra for tension-free placement. The vaginal defect was then closed running suture 2-0 Vicryl. The excess tape was severed at the skin line and the puncture was closed using Dermabond patient is urinating clear throughout the procedure taken to recovery room good condition.
[2019-08-31] MEDS ORDERED: OXYCODONE-ACETAMINOPHEN 5-325 MG TABLET PO PRN (10:56)
[2019-08-31] MEDS ORDERED: ONDANSETRON HCL 8 MG TABLET PO PRN (10:57)
[2019-08-31] MEDS: FENTANYL CITRATE INJ/PF 100 MCG/2 ML AMPUL ONE ×3 (11:00→11:15)
[2019-08-31] MEDS ORDERED: OXYCODONE-ACETAMINOPHEN 5-325 MG TABLET ONE (12:04)
[2019-08-31] MEDS ORDERED: IBUPROFEN 800 MG TABLET PO SCH (14:00)
[2019-08-31 14:22] VITALS: BP 112/70
== END 2019-08-31 13:30 | disposition home or self-care (01) ==
LOC: OROUT 08:45
PROVIDERS: ATTEND Obstetrics & Gynecology Gynecology
DX: E03.9 Hypothyroidism, unspecified (principal); I10 Essential (primary) hypertension; N39.3 Stress incontinence (female) (male); Z79.899 Other long term (current) drug therapy; Z91.040 Latex allergy status
CPT/HCPCS: 36415; 85027; 87635; 81001; 57288; J2250; J0690; J1100; J3010; J2405; J2704; C1781

== ENCOUNTER 2019-11-14 16:48 | Emergency (ER) | payer MEDICAID ==
[2019-11-14] MEDS ORDERED: MORPHINE SULFATE 10 MG/ML INJ IV ONE ×2 (17:24→21:12)
[2019-11-14] MEDS ORDERED: ONDANSETRON HCL INJ/PF 4 MG/2 ML SDV IV ONE (17:24)
--- NOTE | 2019-11-14 17:26 | ER Document Report ---
ED Medical Screen (RME) - General Chief Complaint: Pain With Urination Stated Complaint: URINARY ISSUE Time Seen by Provider: 11/14/19 17:21 Primary Care Provider: JUNO LOFTON MD [Primary Care Provider] - Follow up as needed Notes: HPI: 34-year-old female with history of hysterectomy presenting for worsening pelvic pain. Patient had a bladder sling by Dr. Quiroz in August 2019. Patient states boyfriend also returned after 2 months away and she began having intercourse again this week. She started with discomfort with urination approximately 6 days ago called the [facility] and was prescribed Bactrim which she has been on for the last 4 days but symptoms have been progressively worsening describes a sharp uncomfortable pressure in the suprapubic region. Has not had definitive fever. PHYSICAL EXAMINATION: Moderately uncomfortable. Tenderness over the suprapubic region on palpation. No focal tenderness in the right lower quadrant I have greeted and performed a rapid initial assessment of this patient. A comprehensive ED assessment and evaluation of the patient, analysis of test results and completion of medical decision making process will be conducted by an additional ED providers. TRAVEL OUTSIDE OF THE [place] IN LAST 30 DAYS: No - Related Data Allergies/Adverse Reactions: latex [Latex] Allergy (Intermediate, Verified 11/14/19 17:19) Itching & Redness diazepam [From Valium] Adverse Reaction (Verified 11/14/19 17:19) VOMITING Past Medical History - Past Medical History Cardiac Medical History: Reports: Hx Hypertension Denies: Hx Coronary Artery Disease, Hx Heart Attack Pulmonary Medical History: Denies: Hx Asthma, Hx Bronchitis, Hx COPD, Hx Pneumonia Neurological Medical History: Denies: Hx Cerebrovascular Accident, Hx Seizures Renal/ Medical History: Denies: Hx Peritoneal Dialysis Musculoskeltal Medical History: Denies Hx Arthritis Past Surgical History: Reports: Hx Gynecologic Surgery - NOVASURE, Other - Diagnostic laparoscopy done by a MANAGER WINTER 4 days ago which was apparently unr. Denies: Hx Pacemaker - Immunizations Hx Diphtheria, Pertussis, Tetanus Vaccination: No Physical Exam - Vital signs Vitals: Temp Pulse Resp BP Pulse Ox 99.3 F 104 H 18 135/90 H 100 11/14/19 16:52 11/14/19 16:52 11/14/19 16:52 11/14/19 16:52 11/14/19 16:52 Course - Vital Signs Vital signs: Temp Pulse Resp BP Pulse Ox 99.3 F 104 H 18 135/90 H 100 11/14/19 16:52 11/14/19 16:52 11/14/19 16:52 11/14/19 16:52 11/14/19 16:52 Doctor's Discharge - Discharge Referrals: JUNO LOFTON MD [Primary Care Provider] - Follow up as needed
[2019-11-14 18:23] LABS: ABSOLUTE EOSINOPHILS # (AUTO) 0.2 10^3/uL (0.0-0.6); ABSOLUTE LYMPHOCYTES (AUTO) 1.4 10^3/uL (0.5-4.7); ABSOLUTE MONOCYTES (AUTO) 1.2 10^3/uL (0.1-1.4); ABSOLUTE NEUT (AUTO) 11.1 10^3/uL (1.7-8.2); BASOPHILS % (AUTO) 0.3 % (0-2); EOSINOPHILS % (AUTO) 1.6 % (0-6); HEMATOCRIT 40.4 % (36.0-47.0); HEMOGLOBIN 13.7 g/dL (12.0-15.5); LYMPHOCYTES % (AUTO) 10.3 % (13-45); MEAN CORPUSCULAR HEMOGLOBIN 30.8 pg (27.0-33.4); MEAN CORPUSCULAR HGB CONC 34.1 g/dL (32.0-36.0); MEAN CORPUSCULAR VOLUME 90 fl (80-97); MONOCYTES % (AUTO) 8.4 % (3-13); PLATELET COUNT 326 10^3/uL (150-450); RED BLOOD COUNT 4.47 10^6/uL (3.72-5.28); RED CELL DISTRIBUTION WIDTH 13.8 % (11.5-14.0); SEGMENTED NEUTROPHILS % (AUTO) 79.4 % (42-78); TOTAL CELLS COUNTED % (AUTO) 100 %; WHITE BLOOD COUNT 13.9 10^3/uL (4.0-10.5)
[2019-11-14 18:41] LABS: APPEARANCE,URINE TURBID; BILIRUBIN,URINE NEGATIVE (NEGATIVE); COLOR,URINE YELLOW; GLUCOSE, URINE NEGATIVE (NEGATIVE); KETONES,URINE NEGATIVE (NEGATIVE); PROTEIN,URINE 100 mg/dL (NEGATIVE); URINE SPECIFIC GRAVITY 1.006; UROBILINOGEN,URINE NEGATIVE mg/dL (<2.0)
[2019-11-14 18:43] LABS: ALBUMIN 4.8 g/dL (3.5-5.0); ALKALINE PHOSPHATASE 69 U/L (38-126); ANION GAP 9 (5-19); ASPARTATE AMINO TRANSFERASE 21 U/L (14-36); BILIRUBIN,DIRECT 0.1 mg/dL (0.0-0.4); BILIRUBIN,TOTAL 0.7 mg/dL (0.2-1.3); BLOOD UREA NITROGEN 8 mg/dL (7-20); CALCIUM 9.7 mg/dL (8.4-10.2); CARBON DIOXIDE 25 mmol/L (22-30); CHLORIDE 102 mmol/L (98-107); GLUCOSE 94 mg/dL (75-110); POTASSIUM 4.3 mmol/L (3.6-5.0); TOTAL PROTEIN 8.4 g/dL (6.3-8.2)
[2019-11-14] MEDS ORDERED: PHENAZOPYRIDINE HCL 200 MG TABLET PO ONE (18:47)
[2019-11-14] MEDS ORDERED: CEFTRIAXONE 1 GM/D5W RTU 1 GM/50 ML RTUPB IV ONE (18:47)
--- NOTE | 2019-11-14 20:02 | RADIOLOGY REPORT (SQ) ---
EXAM DESCRIPTION: CT PELVIS WITH IMAGES COMPLETED DATE/TIME: 11/14/2019 7:09 pm REASON FOR STUDY: pelvic pain hx bladder sling august COMPARISON: 03/17/2015 TECHNIQUE: CT scan of the pelvis performed using helical scanning technique with dynamic intravenous contrast injection. No oral contrast. Images reviewed with lung, soft tissue, and bone windows. Brannon nstructed coronal and sagittal MPR images reviewed. Delayed images for evaluation of the urinary syst em also acquired. All images stored on PACS. All CT scanners at this facility use dose modulation, iterative reconstruction, and/or weight based d osing when appropriate to reduce radiation dose to as low as reasonably achievable (ALARA). [facility]: Dose Right [facility]: CareDose [facility]: Dose Right [facility]: Teradose 4D [facility]: AxioMx CONTRAST TYPE AND DOSE: contrast/concentration: Isovue 350.00 mmol/ml; Total Contrast Delivered: 89. 0 ml; Total Saline Delivered: 70.0 ml RENAL FUNCTION: None required. The patient is less than 50 years old. RADIATION DOSE: CT Rad equipment meets quality standard of care and radiation dose reduction techniq ues were employed. CTDIvol: 10.2 - 14.0 mGy. DLP: 807 mGy-cm.. LIMITATIONS: None. FINDINGS: RETROPERITONEUM: Duplex left ureters shows increased wall thickening throughout its visua lized course from the mid ureter to the reconstituted single bladder insertion. No evidence for obst ruction on the delayed images. No bulky retroperitoneal adenopathy. BOWEL AND PERITONEAL CAVITY: No obstruction or inflammatory changes. No free fluid. APPENDIX: Normal. PELVIS: Prior hysterectomy. 2.5 cm cyst on the left ovary. 2 cm cyst on the right ovary. Small pamela unt of free fluid. Unremarkable bladder. ABDOMINAL WALL: No masses. No hernias. BONES: No acute findings. OTHER: No other significant finding. IMPRESSION: Duplex left ureters shows increased wall thickening throughout its visualized course fro m the mid ureter to the reconstituted single bladder insertion, exclude infection clinically. No jamal dence for calcified stones or obstruction on the delayed images. Prior hysterectomy. 2.5 cm cyst on the left ovary. 2 cm cyst on the right ovary. Small amount of f ree fluid. Unremarkable bladder. TECHNICAL DOCUMENTATION: JOB ID: [id number] Quality ID # [id number]: Final reports with documentation of one or more dose reduction techniques (e.g., Au tomated exposure control, adjustment of the mA and/or kV according to patient size, use of iterative reconstruction technique) 2010 [employer]- All Rights Reserved Reading location - IP/workstation name: [email or web address]
[2019-11-14] MEDS ORDERED: ONDANSETRON HCL INJ/PF 4 MG/2 ML SDV ONE (21:09)
[2019-11-14] MEDS ORDERED: NORMAL SALINE 1000 ML 1,000 ML IV ONE (21:24)
[2019-11-14] MEDS ORDERED: PHENAZOPYRIDINE HCL 100 MG TABLET PO ONE (21:34)
--- NOTE | 2019-11-14 21:36 | ER Document Report ---
ED GI/ - General Chief Complaint: Pain With Urination Stated Complaint: URINARY ISSUE Time Seen by Provider: 11/14/19 17:21 Primary Care Provider: JUNO LOFTON MD [Primary Care Provider] - Follow up as needed Mode of Arrival: Ambulatory Information source: Patient Notes: Otherwise healthy 34-year-old female presents the emergency department with 6- day history of UTI symptoms. She states she was seen via telemedicine and prescribed Bactrim. She states she completed a 5-day course yesterday. She states her symptoms have not gotten better but have worsened. She denies any fevers at home but had a low-grade fever here on arrival. She denies any nausea or vomiting but reports low abdominal tenderness, back pain and dysuria. She denies any abnormal vaginal discharge. TRAVEL OUTSIDE OF THE [place] IN LAST 30 DAYS: No - Related Data Allergies/Adverse Reactions: latex [Latex] Allergy (Intermediate, Verified 11/14/19 17:19) Itching & Redness diazepam [From Valium] Adverse Reaction (Verified 11/14/19 17:19) VOMITING Past Medical History - General Information source: Patient - Social History Smoking Status: Never Smoker Frequency of alcohol use: None Drug Abuse: None Family History: Reviewed & Not Pertinent Patient has homicidal ideation: No - Past Medical History Cardiac Medical History: Reports: Hx Hypertension Denies: Hx Coronary Artery Disease, Hx Heart Attack Pulmonary Medical History: Denies: Hx Asthma, Hx Bronchitis, Hx COPD, Hx Pneumonia Neurological Medical History: Denies: Hx Cerebrovascular Accident, Hx Seizures Renal/ Medical History: Denies: Hx Peritoneal Dialysis Musculoskeletal Medical History: Denies Hx Arthritis Past Surgical History: Reports: Hx Gynecologic Surgery - NOVASURE, Hx H ysterectomy, Other - Diagnostic laparoscopy. Denies: Hx Pacemaker - Immunizations Hx Diphtheria, Pertussis, Tetanus Vaccination: No Review of Systems - Review of Systems Constitutional: Fever EENT: No symptoms reported Cardiovascular: No symptoms reported Respiratory: No symptoms reported Gastrointestinal: Abdominal pain. denies: Nausea, Vomiting Genitourinary: Dysuria, Frequency, Flank pain - Right flank pain Female Genitourinary: No symptoms reported. denies: Vaginal discharge Musculoskeletal: No symptoms reported Skin: No symptoms reported Hematologic/Lymphatic: No symptoms reported Neurological/Psychological: No symptoms reported Physical Exam - Vital signs Vitals: Temp Pulse Resp BP Pulse Ox 99.3 F 104 H 18 135/90 H 100 11/14/19 16:52 11/14/19 16:52 11/14/19 16:52 11/14/19 16:52 11/14/19 16:52 - Notes Notes: PHYSICAL EXAMINATION: GENERAL: Well-appearing, well-nourished and in no acute distress. HEAD: Atraumatic, normocephalic. EYES: Pupils equal round and reactive to light, extraocular movements intact, conjunctiva are normal. ENT: Nares patent, oropharynx clear without exudates. Moist mucous membranes. NECK: Normal range of motion, supple without lymphadenopathy LUNGS: Breath sounds clear to auscultation bilaterally and equal. No wheezes rales or rhonchi. HEART: Regular rate and rhythm without murmurs ABDOMEN: Soft, nontender, nondistended abdomen. No guarding, no rebound. No masses appreciated. Female : Right-sided CVA tenderness. Musculoskeletal: Normal range of motion, no pitting or edema. No cyanosis. NEUROLOGICAL: Cranial nerves grossly intact. Normal speech, normal gait. Normal sensory, motor exams PSYCH: Normal mood, normal affect. SKIN: Warm, Dry, normal turgor, no rashes or lesions noted. Course - Re-evaluation Re-evalutation: 11/14/19 22:11 Laboratory 11/14/19 11/14/19 11/14/19 17:42 17:59 17:59 WBC 13.9 H RBC 4.47 Hgb 13.7 Hct 40.4 MCV 90 MCH 30.8 MCHC 34.1 RDW 13.8 Plt Count 326 Lymph % (Auto) 10.3 L [place] % (Auto) 8.4 Eos % (Auto) 1.6 Baso % (Auto) 0.3 Absolute Neuts (auto) 11.1 H Absolute Lymphs (auto) 1.4 Absolute Monos (auto) 1.2 Absolute Eos (auto) 0.2 Absolute Basos (auto) 0.0 Seg Neutrophils % 79.4 H Sodium 136.1 L Potassium 4.3 Chloride 102 Carbon Dioxide 25 Anion Gap 9 BUN 8 Creatinine 0.84 Est GFR ( Amer) > 60 Est GFR (MDRD) Non-Af > 60 Glucose 94 Calcium 9.7 Total Bilirubin 0.7 Direct Bilirubin 0.1 Neonat Total Bilirubin Not Reportable Neonat Direct Bilirubin Not Reportable Neonat Indirect Bili Not Reportable AST 21 ALT 18 Alkaline Phosphatase 69 Total Protein 8.4 H Albumin 4.8 Urine Color YELLOW Urine Appearance TURBID Urine pH 5.0 Ur Specific [place] 1.006 Urine Protein 100 H Urine Glucose (UA) NEGATIVE Urine Ketones NEGATIVE Urine Blood MODERATE H Urine Nitrite (Reflex) NEGATIVE Urine Bilirubin NEGATIVE Urine Urobilinogen NEGATIVE Leukocyte Esterase Rfl LARGE H Urine RBC (Auto) 18 Urine Bacteria (Auto) 1+ Urine WBC (Reflex) > 182 Urine WBC Clumps MANY U Non-Squamous Epis Auto 2 Urine Ascorbic Acid NEGATIVE Pelvis CT 11/14/19 17:24 IMPRESSION: Duplex left ureters shows increased wall thickening throughout its visualized course from the mid ureter to the reconstituted single bladder insertion, exclude infection clinically. No evidence for calcified stones or obstruction on the delayed images. Prior hysterectomy. 2.5 cm cyst on the left ovary. 2 cm cyst on the right ovary. Small amount of free fluid. Unremarkable bladder. Patient had a CT of the pelvis ordered by the triage provider. This did not show adequate images to tell patient was having a kidney stone. She was sent back over for a CT of the abdomen. This scan was unremarkable with no acute fin dings. Patient appears well, nontoxic. She has not been vomiting. She will be given IV fluids here in the emergency department as well as IV Rocephin. She will be started on outpatient antibiotic therapy. Discussed with patient that if she begins vomiting or worsens in any way she will need to return to the emergency department. Patient and spouse verbalized understanding and agreement with this plan. - Vital Signs Vital signs: Temp Pulse Resp BP Pulse Ox 98.9 F 89 18 138/79 H 99 11/15/19 00:19 11/15/19 00:19 11/15/19 00:19 11/15/19 00:19 11/15/19 00:19 - Laboratory Result Diagrams: 11/14/19 17:59 11/14/19 17:59 Laboratory results interpreted by me: 11/14/19 11/14/19 11/14/19 17:42 17:59 17:59 WBC 13.9 H Lymph % (Auto) 10.3 L Absolute Neuts (auto) 11.1 H Seg Neutrophils % 79.4 H Sodium 136.1 L Total Protein 8.4 H Urine Protein 100 H Urine Blood MODERATE H Leukocyte Esterase Rfl LARGE H Discharge - Discharge Clinical Impression: Pyelonephritis Condition: Stable Disposition: HOME, SELF-CARE Instructions: Pyelonephritis ([facility]), Rocephin ([facility]) Additional Instructions: Your work-up is consistent with pyelonephritis which is a kidney infection. Please take all medications as prescribed. Please have a low threshold for returning to the emergency department which would be if you start vomiting and are unable to hold down the medications. You may take Tylenol or ibuprofen for fever. Use the narcotic pain medication for severe pain only. Follow-up with your primary care provider. Urine culture is pending, if there is any abnormality with this someone will call you. Prescriptions: Hydrocodone/Acetaminophen [Victor 5-325 mg Tablet] 1 tab PO Q6HP PRN #10 tablet PRN Reason: For Pain Ciprofloxacin HCl [Cipro 500 mg Tablet] 500 mg PO BID #14 tablet Phenazopyridine HCl [Pyridium 100 Mg Tablet] 100 mg PO TID #6 tablet Ondansetron [Zofran Odt 4 mg Tablet] 1 - 2 tab PO Q4H PRN #15 tab.rapdis PRN Reason: For Nausea/Vomiting Referrals: JUNO LOFTON MD [Primary Care Provider] - Follow up as needed
[2019-11-14] MEDS ORDERED: KETOROLAC TROMETHAMINE INJ/PF 30 MG/1 ML SDV IV ONE (21:48)
[2019-11-14] MEDS ORDERED: FENTANYL CITRATE INJ/PF 100 MCG/2 ML AMPUL IV ONE (22:21)
--- NOTE | 2019-11-14 23:30 | RADIOLOGY REPORT (SQ) ---
CLINICAL INDICATION: R flank pain. . TECHNIQUE: Noncontrast spiral axial CT imaging was obtained of the abdomen with multiplanar reconstructions. This exam was performed according to our departmental dose-optimization program, which includes automated exposure control, adjustment of the mA and/or kV according to patient size and/or use of iterative reconstruction techniques. COMPARISON: March 17, 2015. CORRELATION: CT pelvis obtained earlier today. FINDINGS: Abdomen: The lung bases are grossly clear. The heart is of normal size. No evidence of pleural or pericardial fluid. The liver is of normal size contour and attenuation. The gallbladder is surgically absent. The pancreas is of grossly normal contour on this noncontrast examination. The spleen is unremarkable. The adrenals are unremarkable. The kidneys demonstrate residual contrast from prior injection. 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 Mild prominence of the left collecting system and ureters There is no evidence of free air. No free fluid. No bulky adenopathy. Abdominal aorta is nonaneurysmal. The bowel is nonobstructed. Small amount of oral contrast is seen. No focal inflammatory change. Pelvic contents are dictated separately. The appendix is not seen. Visualized bones are unremarkable. IMPRESSION: No acute intra-abdominal process. Mild prominence of the left collecting system and proximal ureters.
[2019-11-14] MEDS ORDERED: ONDANSETRON ODT 4 MG TAB (6 TAB/ER DISP) PO PRN (23:37)
[2019-11-14] MEDS ORDERED: HYDROCODONE/ACETAMINOPHEN 5-325 MG (6 TAB/ER DISP) PO PRN (23:37)
[2019-11-14] MEDS ORDERED: CIPROFLOXACIN HCL 500 MG TABLET PO ONE (23:38)
[2019-11-15 00:20] VITALS: BP 138/79
== END 2019-11-15 00:17 | disposition home or self-care (01) ==
LOC: ER 16:48
DX: N12 Tubulo-interstitial nephritis, not specified as acute or chronic (principal); R30.9 Painful micturition, unspecified; R50.9 Fever, unspecified; Z88.8 Allergy status to other drugs, medicaments and biological substances
CPT/HCPCS: 99284; 96361; 96375; 96365; 36415; 87086; 85025; 87088; 80053; 81001; 87186; 72193; 74150; J3490 ×2; J3010; J1885; J2270; J2405; J7030; J0696

== ENCOUNTER 2019-11-16 04:43 | Emergency (ER) | payer MEDICAID ==
[2019-11-16 06:28] LABS: ABSOLUTE BASOPHILS # (AUTO) 0.1 10^3/uL (0.0-0.2); ABSOLUTE EOSINOPHILS # (AUTO) 0.7 10^3/uL (0.0-0.6); ABSOLUTE LYMPHOCYTES (AUTO) 1.5 10^3/uL (0.5-4.7); ABSOLUTE NEUT (AUTO) 6.6 10^3/uL (1.7-8.2); BASOPHILS % (AUTO) 0.6 % (0-2); EOSINOPHILS % (AUTO) 6.6 % (0-6); HEMATOCRIT 36.3 % (36.0-47.0); HEMOGLOBIN 12.4 g/dL (12.0-15.5); LYMPHOCYTES % (AUTO) 15.6 % (13-45); MEAN CORPUSCULAR HEMOGLOBIN 30.7 pg (27.0-33.4); MEAN CORPUSCULAR HGB CONC 34.1 g/dL (32.0-36.0); MEAN CORPUSCULAR VOLUME 90 fl (80-97); PLATELET COUNT 308 10^3/uL (150-450); RED BLOOD COUNT 4.03 10^6/uL (3.72-5.28); RED CELL DISTRIBUTION WIDTH 13.7 % (11.5-14.0); SEGMENTED NEUTROPHILS % (AUTO) 67.2 % (42-78); TOTAL CELLS COUNTED % (AUTO) 100 %; WHITE BLOOD COUNT 9.9 10^3/uL (4.0-10.5)
[2019-11-16 06:34] LABS: APPEARANCE,URINE SLIGHTLY-CLOUDY; BILIRUBIN,URINE NEGATIVE (NEGATIVE); GLUCOSE, URINE NEGATIVE (NEGATIVE); KETONES,URINE NEGATIVE (NEGATIVE); LEUKOCYTE ESTERASE,URINE MODERATE (NEGATIVE); NITRITE,URINE POSITIVE (NEGATIVE); PROTEIN,URINE NEGATIVE (NEGATIVE)
[2019-11-16 06:35] LABS: COLOR,URINE DARK YELLOW
[2019-11-16 06:45] LABS: ALBUMIN 3.7 g/dL (3.5-5.0); ALKALINE PHOSPHATASE 72 U/L (38-126); ANION GAP 5 (5-19); ASPARTATE AMINO TRANSFERASE 37 U/L (14-36); BILIRUBIN,TOTAL 0.2 mg/dL (0.2-1.3); BLOOD UREA NITROGEN 9 mg/dL (7-20); CARBON DIOXIDE 23 mmol/L (22-30); CHLORIDE 109 mmol/L (98-107); GLUCOSE 102 mg/dL (75-110); POTASSIUM 4.5 mmol/L (3.6-5.0); TOTAL PROTEIN 6.8 g/dL (6.3-8.2)
[2019-11-16] MEDS ORDERED: CEFTRIAXONE 1 GM/D5W RTU 1 GM/50 ML RTUPB IV ONE (09:13)
[2019-11-16] MEDS ORDERED: HYDROCODONE/ACETAMINOPHEN 5-325 MG TABLET PO ONE (09:13)
--- NOTE | 2019-11-16 09:15 | ER Document Report ---
ED GI/ - General Chief Complaint: Abdominal Pain Stated Complaint: NAUSEA,ABDOMINAL AND FLANK PAIN Time Seen by Provider: 11/16/19 08:49 Primary Care Provider: [facility] [Provider Group] - Follow up in 3-5 days JUNO LOFTON MD [Primary Care Provider] - Follow up as needed Mode of Arrival: Ambulatory Information source: Patient Notes: Patient presents after being diagnosed with a UTI 9 days ago. Patient states that around 3:00 her pain to the left lower quadrant left flank area return. Patient reports nausea without vomiting or diarrhea. Patient does report dysuria. No fever. Patient has been compliant with taking her antibiotics. TRAVEL OUTSIDE OF THE [place] IN LAST 30 DAYS: No - HPI Patient complains to provider of: Dysuria, Flank pain, Pelvic pain Onset: Other - 9 days Timing/Duration: Persistent Quality of pain: Achy Pain Level: 3 Location: LLQ, Left flank Vaginal bleeding (Compared to normal period): None Associated symptoms: Dysuria, Nausea. denies: Fever, Urinary hesitancy, Urinary frequency, Urinary retention, Vomiting Exacerbated by: Denies Relieved by: Denies Similar symptoms previously: Yes Recently seen / treated by doctor: Yes - Related Data Allergies/Adverse Reactions: latex [Latex] Allergy (Intermediate, Verified 11/14/19 17:19) Itching & Redness diazepam [From Valium] Adverse Reaction (Verified 11/14/19 17:19) VOMITING Home Medications: Pyridium. Cipro Past Medical History - General Information source: Patient - Social History Smoking Status: Never Smoker Chew tobacco use (# tins/day): No Frequency of alcohol use: None Drug Abuse: None Occupation: Office work Family History: Reviewed & Not Pertinent - Past Medical History Cardiac Medical History: Reports: Hx Hypertension Denies: Hx Coronary Artery Disease, Hx Heart Attack Pulmonary Medical History: Denies: Hx Asthma, Hx Bronchitis, Hx COPD, Hx Pneumonia Neurological Medical History: Denies: Hx Cerebrovascular Accident, Hx Seizures Renal/ Medical History: Denies: Hx Peritoneal Dialysis Musculoskeletal Medical History: Denies Hx Arthritis Past Surgical History: Reports: Hx Gynecologic Surgery - NOVASURE, Hx Hysterectomy, Other - Diagnostic laparoscopy. Denies: Hx Pacemaker - Immunizations Hx Diphtheria, Pertussis, Tetanus Vaccination: No Review of Systems - Review of Systems Constitutional: Recent illness - Recent UTI. denies: Fever EENT: No symptoms reported Cardiovascular: No symptoms reported Respiratory: No symptoms reported. denies: Cough Gastrointestinal: Abdominal pain, Nausea. denies: Diarrhea, Vomiting Genitourinary: Dysuria, Flank pain Female Genitourinary: No symptoms reported Musculoskeletal: Back pain Skin: No symptoms reported Hematologic/Lymphatic: No symptoms reported Neurological/Psychological: No symptoms reported Physical Exam - Vital signs Vitals: Temp Pulse Resp BP Pulse Ox 98.5 F 80 18 120/77 97 11/16/19 04:54 11/16/19 04:54 11/16/19 04:54 11/16/19 04:54 11/16/19 04:54 - General General appearance: Appears well, Alert In distress: None - HEENT Head: Normocephalic, Atraumatic Eyes: Normal Conjunctiva: Normal Nasal: Normal Mouth/Lips: Normal Mucous membranes: Normal Neck: Normal, Supple. No: Lymphadenopathy - Respiratory Respiratory status: No respiratory distress Chest status: Nontender Breath sounds: Normal. No: Rales, Rhonchi, Stridor, Wheezing Chest palpation: Normal - Cardiovascular Rhythm: Regular Heart sounds: S1 appreciated, S2 appreciated Murmur: No - Abdominal Inspection: Normal Distension: No distension Bowel sounds: Normal Tenderness: Tender - Suprapubic, left lower quadrant. No: McBurney's point, Ledesma's sign, Guarding Organomegaly: No organomegaly - Genitourinary External exam: Normal Speculum exam: Vaginal discharge Vaginal bleeding: None Bimanuel exam: No: Adnexal tenderness Notes: post surgical changes s/p hyst - Back Back: Normal, Nontender. No: CVA tenderness - Extremities General upper extremity: Normal inspection, Nontender, Normal strength General lower extremity: Normal inspection, Nontender, Normal strength - Neurological Neuro grossly intact: Yes Cognition: Normal [place] Coma Scale Eye Opening: Spontaneous Lux Coma Scale Verbal: Oriented [place] Coma Scale Motor: Obeys Commands Lux Coma Scale Total: 15 - Psychological Associated symptoms: Normal affect, Normal mood - Skin Skin Temperature: Warm Skin Moisture: Dry Skin Color: Normal Course - Re-evaluation Re-evalutation: 11/16/19 11:20 Patient has resolving UTI at this time. No concern for pyelonephritis or sepsis. Patient does have incidental left ovarian mass to look suspicious for complicated hemorrhagic cyst. Patient was given a copy of her ultrasound report and encouraged to follow-up with her gear technician for further monitoring and intervention regarding this finding. Patient verbalized understanding and is agreeable with discharge plan of care. - Vital Signs Vital signs: Temp Pulse Resp BP Pulse Ox 98.3 F 74 16 122/76 99 11/16/19 12:15 11/16/19 12:15 11/16/19 12:15 11/16/19 12:15 11/16/19 12:15 - Laboratory Result Diagrams: 11/16/19 06:10 11/16/19 06:10 Laboratory results interpreted by me: 11/16/19 11/16/19 11/16/19 06:10 06:10 06:10 Eos % (Auto) 6.6 H Absolute Eos (auto) 0.7 H Chloride 109 H AST 37 H ALT 55 H Urine Nitrite POSITIVE H Urine Urobilinogen 2.0 H Ur Leukocyte Esterase MODERATE H 11/16/19 11:21 Labs- All tests 24 hr 11/16/19 11/16/19 11/16/19 06:10 06:10 06:10 WBC 9.9 RBC 4.03 Hgb 12.4 Hct 36.3 MCV 90 MCH 30.7 MCHC 34.1 RDW 13.7 Plt Count 308 Lymph % (Auto) 15.6 [place] % (Auto) 10.0 Eos % (Auto) 6.6 H Baso % (Auto) 0.6 Absolute Neuts (auto) 6.6 Absolute Lymphs (auto) 1.5 Absolute Monos (auto) 1.0 Absolute Eos (auto) 0.7 H Absolute Basos (auto) 0.1 Seg Neutrophils % 67.2 Sodium 137.3 Potassium 4.5 Chloride 109 H Carbon Dioxide 23 Anion Gap 5 BUN 9 Creatinine 0.69 Est GFR ( Amer) > 60 Est GFR (MDRD) Non-Af > 60 Glucose 102 Calcium 9.0 Total Bilirubin 0.2 Direct Bilirubin 0.0 Neonat Total Bilirubin Not Reportable Neonat Direct Bilirubin Not Reportable Neonat Indirect Bili Not Reportable AST 37 H ALT 55 H Alkaline Phosphatase 72 Total Protein 6.8 Albumin 3.7 Lipase 86.9 Urine Color DARK YELLOW Urine Appearance SLIGHTLY-CLOUDY Urine pH 5.0 Ur Specific [place] 1.010 Urine Protein NEGATIVE Urine Glucose (UA) NEGATIVE Urine Ketones NEGATIVE Urine Blood NEGATIVE Urine Nitrite POSITIVE H Urine Bilirubin NEGATIVE Urine Urobilinogen 2.0 H Ur Leukocyte Esterase MODERATE H Urine WBC (Auto) 61 Urine RBC (Auto) 3 Urine Bacteria (Auto) 1+ Squamous Epi Cells Auto 7 Urine Mucus (Auto) RARE Urine Ascorbic Acid NEGATIVE Urine HCG, Qual Epi Cells (Wet Prep) Trichomonas (Wet Prep) Vaginal WBC Vaginal Yeast 11/16/19 11/16/19 06:10 10:30 WBC RBC Hgb Hct MCV MCH MCHC RDW Plt Count Lymph % (Auto) [place] % (Auto) Eos % (Auto) Baso % (Auto) Absolute Neuts (auto) Absolute Lymphs (auto) Absolute Monos (auto) Absolute Eos (auto) Absolute Basos (auto) Seg Neutrophils % Sodium Potassium Chloride Carbon Dioxide Anion Gap BUN Creatinine Est GFR ( Amer) Est GFR (MDRD) Non-Af Glucose Calcium Total Bilirubin Direct Bilirubin Neonat Total Bilirubin Neonat Direct Bilirubin Neonat Indirect Bili AST ALT Alkaline Phosphatase Total Protein Albumin Lipase Urine Color Urine Appearance Urine pH Ur Specific [place] Urine Protein Urine Glucose (UA) Urine Ketones Urine Blood Urine Nitrite Urine Bilirubin Urine Urobilinogen Ur Leukocyte Esterase Urine WBC (Auto) Urine RBC (Auto) Urine Bacteria (Auto) Squamous Epi Cells Auto Urine Mucus (Auto) Urine Ascorbic Acid Urine HCG, Qual NEGATIVE Epi Cells (Wet Prep) 3+ EPITHELIALS SEEN Trichomonas (Wet Prep) NO TRICHOMONAS SEEN Vaginal WBC RARE WBCS SEEN Vaginal Yeast NO YEAST SEEN - Diagnostic Test Radiology reviewed: Reports reviewed Discharge - Discharge Clinical Impression: Hemorrhagic cyst UTI (urinary tract infection) Qualifiers: Urinary tract infection type: site unspecified Hematuria presence: without hematuria Qualified Code(s): N39.0 - Urinary tract infection, site not specified Condition: Stable Disposition: HOME, SELF-CARE Instructions: Ciprofloxacin ([facility]), Growth or Mass, Pending Workup ([facility]), Ovarian Cyst ([facility]), Urinary Tract Infection ([facility]) Additional Instructions: Return immediately for any new or worsening symptoms Followup with your primary care provider, call tomorrow to make a followup appo intment Follow-up with your gear technician for further management and evaluation of likely hemorrhagic cyst of the left ovary. Call their office tomorrow to make a follow-up appointment Prescriptions: Naproxen [Naprosyn 250 Nmg Tablet] 1 tab PO BID #14 tablet Forms: Return to Work Referrals: JUNO LOFTON MD [Primary Care Provider] - Follow up as needed [facility] [Provider Group] - Follow up in 3-5 days
--- NOTE | 2019-11-16 10:41 | RADIOLOGY REPORT (SQ) ---
EXAM DESCRIPTION: U/S NON OB PEL TV W/DOPPLER IMAGES COMPLETED DATE/TIME: 11/16/2019 10:16 am REASON FOR STUDY: pelvic, LLQ pain COMPARISON: Recent CT. TECHNIQUE: Dynamic and static grayscale images acquired of the pelvis via transvaginal approach and recorded on PACS. Additional selected color Doppler and spectral images recorded. LIMITATIONS: None. FINDINGS: UTERUS: Surgically absent. RIGHT OVARY AND DOPPLER: 1.4 cm relatively simple appearing cyst. No suggestion of solid mass. Norm al arterial vascular flow without evidence of torsion. LEFT OVARY AND DOPPLER: Normal size. Complex appearing region probably represents a hemorrhagic cyst . This measures 2.4 cm. Normal arterial vascular flow without evidence for torsion. FREE FLUID: Cul-de-sac fluid is noted. This may be progressive. OTHER: No other significant finding. MEASUREMENTS: RIGHT OVARY: 3.2 x 2.4 x 2.3 cm LEFT OVARY: 5.2 x 4.4 x 3.3 cm IMPRESSION: Indeterminate left ovarian mass. Probably a complicated hemorrhagic cyst. 6- 12 week f ollow up ultrasound recommended. Followup of asymptomatic indeterminate ovarian cysts detected by ultrasound in PREMENOPAUSAL patient s Cyst with findings suggestive of, but not classic for, hemorrhagic cyst, endometrioma or dermoid:6-12 week followup US; if not a resolving hemorrhagic cyst, continued US or MRI followup; if endometrioma or dermoid still not confirmed, consider surgical consultationwarranted. Based on recommendations of the Society for Radiologists in Ultrasound Consensus Conference Statement 2010 on management of asymptomatic ovarian and other adnexal cysts imaged at ultrasound. TECHNICAL DOCUMENTATION: JOB ID: [id number] 2010 [employer]- All Rights Reserved Rev-08/30 Reading location - IP/workstation name: [email or web address]
[2019-11-16 10:45] LABS: EPITHELIALS (WET MOUNT) 3+ EPITHELIALS SEEN; T.VAGINALIS (WET MOUNT) NO TRICHOMONAS SEEN; WBCS (WET MOUNT) RARE WBCS SEEN; YEAST (WET MOUNT) NO YEAST SEEN
[2019-11-16 12:13] LABS: CHLAM PCR NOT DETECTED (NOT DETECT)
[2019-11-16 12:31] VITALS: BP 122/76
== END 2019-11-16 12:31 | disposition home or self-care (01) ==
LOC: ER 04:43
DX: N39.0 Urinary tract infection, site not specified (principal); N83.202 Unspecified ovarian cyst, left side; R11.0 Nausea; I10 Essential (primary) hypertension; Z87.440 Personal history of urinary (tract) infections; Z91.040 Latex allergy status
CPT/HCPCS: 99284; 96365; 36415; 87086; 87210; 83690; 85025; 81025; 80053; 81001; 87491; 87591; 76830; 93976; J0696

== ENCOUNTER 2020-03-21 07:11 | Day surgery (SDC) | payer MEDICAID ==
[2020-03-16 10:35] LABS: APPEARANCE,URINE CLEAR; BILIRUBIN,URINE NEGATIVE (NEGATIVE); COLOR,URINE STRAW; GLUCOSE, URINE NEGATIVE (NEGATIVE); KETONES,URINE NEGATIVE (NEGATIVE); LEUKOCYTE ESTERASE,URINE NEGATIVE (NEGATIVE); NITRITE,URINE NEGATIVE (NEGATIVE); PROTEIN,URINE NEGATIVE (NEGATIVE); URINE SPECIFIC GRAVITY 1.004; UROBILINOGEN,URINE NEGATIVE mg/dL (<2.0)
[2020-03-16 10:40] LABS: HEMATOCRIT 37.7 % (36.0-47.0); HEMOGLOBIN 12.8 g/dL (12.0-15.5); MEAN CORPUSCULAR HEMOGLOBIN 30.5 pg (27.0-33.4); MEAN CORPUSCULAR HGB CONC 33.9 g/dL (32.0-36.0); MEAN CORPUSCULAR VOLUME 90 fl (80-97); PLATELET COUNT 402 10^3/uL (150-450); RED BLOOD COUNT 4.19 10^6/uL (3.72-5.28); RED CELL DISTRIBUTION WIDTH 12.8 % (11.5-14.0); WHITE BLOOD COUNT 4.9 10^3/uL (4.0-10.5)
--- NOTE | 2020-03-16 13:38 | EKG REPORT ---
SEVERITY:- NORMAL ECG - SINUS RHYTHM : Confirmed by: Alexis Porras MD 16-Mar-2020 13:37:12
[~2020-03-21 07:11] MED LIST changes: -CEFAZOLIN 1 GM/D5W RTU 1 GM/50 ML RTUPB IV PRN; +FENTANYL CITRATE INJ/PF 100 MCG/2 ML AMPUL ONE; +MIDAZOLAM 2 MG/2 ML INJ ONE; +PROPOFOL INJ 200 MG/20 ML VIAL IV ONE
[2020-03-21] MEDS ORDERED: SCOPOLAMINE HYDROBROMIDE 1.5 MG PATCH.TD72 ONE (07:34)
[2020-03-21] MEDS ORDERED: CEFTRIAXONE 1 GM/D5W RTU 0 GM/0 ML RTUPB IV ONE (09:24)
[2020-03-21] MEDS ORDERED: BUPIVACAINE HCL 0.25 % INJ/PF (2.5 MG/1 ML) 30 ML VIAL ONE (09:44)
[2020-03-21] MEDS ORDERED: DEXMEDETOMIDINE INJ 80 MCG/20 ML VIAL IV ONE (09:59)
[2020-03-21] MEDS ORDERED: ONDANSETRON HCL INJ/PF 4 MG/2 ML SDV ONE ×2 (10:13→14:55)
[2020-03-21] MEDS ORDERED: DEXAMETHASONE SOD PHOSPHATE INJ 4 MG/1 ML VIAL ONE ×2 (10:13→14:55)
[2020-03-21] MEDS ORDERED: PROPOFOL INJ 200 MG/20 ML VIAL IV ONE ×2 (10:14→10:16)
[2020-03-21] MEDS ORDERED: FENTANYL CITRATE INJ/PF 100 MCG/2 ML AMPUL ONE ×2 (10:28→11:15)
[2020-03-21] MEDS ORDERED: OXYCODONE-ACETAMINOPHEN 5-325 MG TABLET PO PRN ×3 (10:40→11:37)
[2020-03-21] MEDS ORDERED: PROMETHAZINE HCL INJ 25 MG/1 ML VIAL IV PRN ×2 (10:40)
[2020-03-21] MEDS ORDERED: MORPHINE SULFATE 10 MG/ML INJ IV PRN (10:40)
[2020-03-21] MEDS ORDERED: DIPHENHYDRAMINE HCL 50 MG/ML VIAL IV PRN (10:40)
[2020-03-21] MEDS ORDERED: FENTANYL CITRATE INJ/PF 100 MCG/2 ML AMPUL IV PRN ×3 (10:40)
--- NOTE | 2020-03-21 10:42 | Operative Report ---
Operative Report DATE OF SURGERY: 03/21/20 PREOPERATIVE DIAGNOSIS: Left lower quadrant pain POSTOPERATIVE DIAGNOSIS: Same OPERATION: Left salpingo-oophorectomy SURGEON: FREDERICK TERRAZAS ANESTHESIA: GA TISSUE REMOVED OR ALTERED: Left tube and ovary COMPLICATIONS: None INTRAOPERATIVE FINDINGS: Adhesions from the left ovary to left adnexal wall adhesions from the omentum and bowel to the left adnexal wall PROCEDURE: She placed in a dorsolithotomy vision prepped and draped in the usual sterile fashion. Sponge stick was placed in the vagina and bladder was drained to catheter. A subumbilical midline incision was made trochars introduced with insufflation of the abdomen. The visualization of the pelvis was noted in the right ovary appeared to be free and normal on the left the ovary was adhered to the left adnexal wall. A second puncture was made above the symphysis and trocar was introduced and a third lateral to the umbilicus and a third trocar was introduced. Using harmonic scalpel the left medial thigh was then divided and divided this was continued down through the adhesions on the left sidewall to the ovary was freed. There is placed in a Pleatman sac and removed through the suprapubic port. Stasis was noted. Was removed and deflated trocar sleeves were removed. The subumbilical and suprapubic incisions were closed with 0 Vicryl for the fascia and 4-0 Vicryl subcu and the puncture wound on the left was closed using surgical glue. Patient tolerated well to recovery in good condition.
[2020-03-21] MEDS ORDERED: OXYCODONE-ACETAMINOPHEN 5-325 MG TABLET ONE (11:55)
[2020-03-21 13:21] VITALS: BP 130/85
[2020-03-21] MEDS ORDERED: IBUPROFEN 800 MG TABLET PO SCH (14:00)
[2020-03-21] MEDS ORDERED: NEOSTIGMINE METHYLSULFATE 10 MG/10 ML VIAL ONE (14:55)
[2020-03-21] MEDS ORDERED: GLYCOPYRROLATE 1 MG/5 ML VIAL ONE (14:55)
[2020-03-21] MEDS ORDERED: KETOROLAC TROMETHAMINE 60 MG/2 ML SDV ONE (14:55)
== END 2020-03-21 13:05 | disposition home or self-care (01) ==
LOC: OROUT 07:11
PROVIDERS: ATTEND Obstetrics & Gynecology Gynecology
DX: N83.12 Corpus luteum cyst of left ovary (principal); N73.6 Female pelvic peritoneal adhesions (postinfective); I10 Essential (primary) hypertension; Z20.828 Contact with and (suspected) exposure to other viral communicable diseases; Z79.899 Other long term (current) drug therapy; Z90.49 Acquired absence of other specified parts of digestive tract; Z90.711 Acquired absence of uterus with remaining cervical stump
CPT/HCPCS: 93005; 36415; 85027; 87635; 81001; 88305 ×2; 93010; 00840; 58661; J2250; J1100; J1885; J3010; J3490 ×4; J2710; J2405; J2704; C9803; 840; J0696